=== PATIENT | female | born 1985 | race American Indian/Alaskan Native ===

== ENCOUNTER 2019-03-07 07:46 | Emergency (ER) | payer MEDICAID ==
[2019-03-07 07:51] VITALS: BP 127/87
--- NOTE | 2019-03-07 08:00 | Emergency Department Report ---
ED ENT HPI - General Chief complaint: Dental/Oral Stated complaint: TOOTH PAIN Time Seen by Provider: 03/07/19 07:52 Source: patient Mode of arrival: Ambulatory Limitations: No Limitations - History of Present Illness Initial comments: Patient is a 33-year-old female presents emergency room with complaints of right upper dental pain that began 2 weeks ago. She states that she began noticing swelling to the gum on that side a couple days ago. she denies any fever, chills, nausea, vomiting, any other symptoms. She is tolerating by mouth intake. Denies any past medical history or allergies medications. states she has not seen a dentist in a few years. States her last dental cycle was February 14. - Related Data Previous Rx's Medication Instructions Recorded Last Taken Type Ibuprofen [Motrin 600 MG tab] 600 mg PO Q8H PRN #14 tablet 03/07/19 Unknown Rx Penicillin Vk [Veetids TAB] 500 mg PO QID 7 Days #56 tablet 03/07/19 Unknown Rx Allergies Allergy/AdvReac Type Severity Reaction Status Date / Time No Known Allergies Allergy Unverified 03/07/19 07:47 ED Dental HPI - General Chief complaint: Dental/Oral Stated complaint: TOOTH PAIN Time Seen by Provider: 03/07/19 07:52 Source: patient Mode of arrival: Ambulatory Limitations: No Limitations - Related Data Previous Rx's Medication Instructions Recorded Last Taken Type Ibuprofen [Motrin 600 MG tab] 600 mg PO Q8H PRN #14 tablet 03/07/19 Unknown Rx Penicillin Vk [Veetids TAB] 500 mg PO QID 7 Days #56 tablet 03/07/19 Unknown Rx Allergies Allergy/AdvReac Type Severity Reaction Status Date / Time No Known Allergies Allergy Unverified 03/07/19 07:47 ED Review of Systems ROS: Stated complaint: TOOTH PAIN Other details as noted in HPI Comment: All other systems reviewed and negative ED Past Medical Hx - Past Medical History Previous Medical History?: No - Surgical History Past Surgical History?: Yes Additional Surgical History: D & C in 2006 - Social History Smoking Status: Former Smoker Substance Use Type: Alcohol, Marijuana, Other - Medications Home Medications: Home Medications Medication Instructions Recorded Confirmed Last Taken Type Ibuprofen [Motrin 600 MG tab] 600 mg PO Q8H PRN #14 tablet 03/07/19 Unknown Rx Penicillin Vk [Veetids TAB] 500 mg PO QID 7 Days #56 tablet 03/07/19 Unknown Rx ED Physical Exam - General Limitations: No Limitations General appearance: alert, in no apparent distress - Head Head exam: Present: atraumatic, normocephalic - Eye Eye exam: Present: normal appearance - ENT ENT exam: Present: normal orophraynx, mucous membranes moist, other (cracked tooth present at tooth #2, area of edema present on the right upper gumline, no obvious fluctuance, uvula is midline, no uvular edema) - Respiratory Respiratory exam: Present: normal lung sounds bilaterally. Absent: respiratory distress, wheezes, rales, rhonchi, stridor, chest wall tenderness, accessory muscle use, decreased breath sounds, prolonged expiratory - Cardiovascular Cardiovascular Exam: Present: regular rate, normal rhythm, normal heart sounds. Absent: systolic murmur, diastolic murmur, rubs, gallop - Neurological Exam Neurological exam: Present: alert, oriented X3 - Psychiatric Psychiatric exam: Present: normal affect, normal mood - Skin Skin exam: Present: warm, dry, intact ED Course Vital Signs 03/07/19 07:48 Temperature 98.7 F Pulse Rate 76 Respiratory 18 Rate Blood Pressure 127/87 O2 Sat by Pulse 97 Oximetry ED Medical Decision Making - Medical Decision Making Patient is a 33-year-old female presents emergency room with complaints of right upper dental pain that began 2 weeks ago. She states that she began noticing swelling to the gum on that side a couple days ago. she denies any fever, chills, nausea, vomiting, any other symptoms. She is tolerating by mouth intake. Denies any past medical history or allergies medications. states she has not seen a dentist in a few years. States her last dental cycle was February 14. vitals are normal. on exam: cracked tooth present at tooth #2, area of edema present on the right upper gumline, no obvious fluctuance, uvula is midline, no uvular edema. examination consistent with early dental abscess. pt given prescription for penicillin vk and ibuprofen. advised pt to Please take medication as prescribed. please follow-up with a dentist in the next 2-3 days. It is very important that you follow up with a dentist for a permanent solution. Return to the emergency room for any new or worsening symptoms. Critical care attestation.: If time is entered above; I have spent that time in minutes in the direct care of this critically ill patient, excluding procedure time. ED Disposition Clinical Impression: Dental abscess Disposition: - TO HOME OR SELFCARE Is pt being admited?: No Does the pt Need Aspirin: No Condition: Stable Instructions: Dental Abscess (ED) Additional Instructions: Please take medication as prescribed. please follow-up with a dentist in the next 2-3 days. It is very important that you follow up with a dentist for a permanent solution. Return to the emergency room for any new or worsening symptoms. Prescriptions: Ibuprofen [Motrin 600 MG tab] 600 mg PO Q8H PRN #14 tablet PRN Reason: Pain Penicillin Vk [Veetids TAB] 500 mg PO QID 7 Days #56 tablet Referrals: [facility] [Outside] - 2-3 Days Time of Disposition: 07:58 Print Language: WELSH
== END 2019-03-07 08:05 | disposition home or self-care (01) ==
LOC: ED 07:46
DX: K04.7 Periapical abscess without sinus (principal); F12.10 Cannabis abuse, uncomplicated; Z98.890 Other specified postprocedural states; Z87.891 Personal history of nicotine dependence; Z79.899 Other long term (current) drug therapy

== ENCOUNTER 2019-06-16 14:16 | Emergency (ER) | payer MEDICAID ==
[2019-06-16 14:28] VITALS: BP 110/72
[2019-06-16] MEDS ORDERED: FAMOTIDINE 20 MG TAB PO ONE (16:26)
[2019-06-16] MEDS ORDERED: ACETAMINOPHEN 500 MG TAB PO ONE (16:26)
--- NOTE | 2019-06-16 16:26 | Emergency Department Report ---
Chief Complaint: Abdominal Pain Stated Complaint: POSS STD/CP/ABD PAIN Time Seen by Provider: 06/16/19 16:25 - HPI History of Present Illness: 33 y/o fem p/w 1) cp 2) abd pain 3? sti states no pmd no pe dvt risk factors + cough exam benign low risk for mace assuming - troponin labs ekg ua xr chest Vital Signs 06/16/19 14:26 Temperature 97.7 F Pulse Rate 81 Respiratory 16 Rate Blood Pressure 110/72 O2 Sat by Pulse 97 Oximetry - Exam Vital Signs: Vital Signs 06/16/19 14:26 Temperature 97.7 F Pulse Rate 81 Respiratory 16 Rate Blood Pressure 110/72 O2 Sat by Pulse 97 Oximetry MSE screening note: Focused history and physical exam performed. Due to findings the following was ordered: ED Medical Decision Making - Lab Data Result diagrams: 06/16/19 16:34 06/16/19 16:34 ED Disposition for MSE Condition: Stable Instructions: Abdominal Pain (ED)
[2019-06-16 16:44] LABS: Hematocrit 39.3 % (30.3-42.9); Hemoglobin 13.1 gm/dl (10.1-14.3); Mean Corpuscular HGB Conc 33 % (30-34); Mean Corpuscular Volume 89 fl (79-97); Platelet Count 351 K/mm3 (140-440); Red Cell Distribution Width 13.6 % (13.2-15.2)
[2019-06-16 16:55] LABS: INR 0.94 (0.87-1.13)
[2019-06-16 17:00] LABS: Alanine Aminotransferase 14 units/L (7-56); Albumin 4.3 g/dL (3.9-5); BUN/Creatinine Ratio 19; Blood Urea Nitrogen 15 mg/dL (7-17); Calcium 9.5 mg/dL (8.4-10.2); Hemolysis Index 6
--- NOTE | 2019-06-16 18:08 | XRay Report ---
CHEST 2 VIEWS INDICATION / CLINICAL INFORMATION: cp. COMPARISON: None available. FINDINGS: SUPPORT DEVICES: None. HEART / MEDIASTINUM: No significant abnormality. LUNGS / PLEURA: No significant pulmonary or pleural abnormality. No pneumothorax. ADDITIONAL FINDINGS: No significant additional findings. IMPRESSION: 1. No acute findings. Signer Name: Nishant Brown MD Signed: 06/16/2019 6:04 PM Workstation Name: [id number]
== END 2019-06-16 21:00 | disposition left against medical advice (07) ==
LOC: ED 14:16
DX: R05 Cough (principal); R10.9 Unspecified abdominal pain; R07.89 Other chest pain; Z20.2 Contact with and (suspected) exposure to infections with a predominantly sexual mode of transmission
CPT/HCPCS: 36415; 71046; 80053; 82550; 83735; 84484; 84702; 85027; 85610

== ENCOUNTER 2019-10-19 07:44 | Emergency (ER) | payer SELFPAY ==
--- NOTE | 2019-10-19 08:03 | Emergency Department Report ---
ED General Adult HPI - General Chief complaint: Sore Throat Stated complaint: CHEST PAIN/BODY/SORE THROAT Time Seen by Provider: 10/19/19 07:55 Source: patient Mode of arrival: Ambulatory Limitations: No Limitations - History of Present Illness Initial comments: Patient is a 33-year-old female who presents emergency room with complaints of generalized body aches that began a couple days ago. She states that she also has cough, sore throat, ear discomfort, chest discomfort after frequent coughing. She denies any fever, nausea, vomiting, diarrhea, shortness of breath. She denies any sick contacts or recent travel. She denies any past medical history. She denies any allergies to medications. She states she is a non-smoker. - Related Data Previous Rx's Medication Instructions Recorded Last Taken Type Ibuprofen [Motrin 600 MG tab] 600 mg PO Q8H PRN #14 tablet 03/07/19 Unknown Rx Penicillin Vk [Veetids TAB] 500 mg PO QID 7 Days #56 tablet 03/07/19 Unknown Rx Allergies Allergy/AdvReac Type Severity Reaction Status Date / Time No Known Allergies Allergy Unverified 03/07/19 07:47 ED Review of Systems ROS: Stated complaint: CHEST PAIN/BODY/SORE THROAT Other details as noted in HPI Comment: All other systems reviewed and negative ED Past Medical Hx - Past Medical History Previous Medical History?: No - Surgical History Past Surgical History?: Yes Additional Surgical History: D & C in 2006 - Social History Smoking Status: Never Smoker - Medications Home Medications: Home Medications Medication Instructions Recorded Confirmed Last Taken Type Ibuprofen [Motrin 600 MG tab] 600 mg PO Q8H PRN #14 tablet 03/07/19 Unknown Rx Penicillin Vk [Veetids TAB] 500 mg PO QID 7 Days #56 tablet 03/07/19 Unknown Rx ED Physical Exam - General Limitations: No Limitations General appearance: alert, in no apparent distress - Head Head exam: Present: atraumatic, normocephalic - Eye Eye exam: Present: normal appearance - ENT ENT exam: Present: normal orophraynx, mucous membranes moist, TM's normal bilaterally, normal external ear exam, other (normal nasal turbinates, no tonsillar hypertrophy or exudates, uvula is midline, no uvular edema or deviation, no trismus, no tongue elevation, no muffled voice, tolerating secretions) - Respiratory Respiratory exam: Present: normal lung sounds bilaterally. Absent: respiratory distress, wheezes, rales, rhonchi, stridor, chest wall tenderness, accessory muscle use, decreased breath sounds, prolonged expiratory - Cardiovascular Cardiovascular Exam: Present: regular rate, normal rhythm, normal heart sounds. Absent: systolic murmur, diastolic murmur, rubs, gallop - Neurological Exam Neurological exam: Present: alert, oriented X3 - Psychiatric Psychiatric exam: Present: normal affect, normal mood - Skin Skin exam: Present: warm, dry, intact ED Course Vital Signs 10/19/19 10/19/19 07:48 08:07 Temperature 99.1 F 98.6 F Pulse Rate 87 80 Respiratory 16 16 Rate Blood Pressure 112/80 Blood Pressure 118/71 [Left] O2 Sat by Pulse 95 98 Oximetry ED Medical Decision Making - Radiology Data Radiology results: report reviewed CHEST 2 VIEWS INDICATION: cough. COMPARISON: 06/16/2019 FINDINGS: Support devices: None. Heart: Within normal limits. Lungs/Pleura: No acute air space or interstitial disease. No significant pleural effusion. IMPRESSION: No acute findings. Signer Name: Edy Stanford MD Signed: 10/19/2019 8:24 AM Workstation Name: [id number] Transcribed By: ES Dictated By: Edy Stanford MD Electronically Authenticated By: Edy Stanford MD Signed Date/Time: 10/19/19823 DD/ 2 TD/TT: - Medical Decision Making Patient is a 33-year-old female who presents emergency room with complaints of generalized body aches that began a couple days ago. She states that she also has cough, sore throat, ear discomfort, chest discomfort after frequent coughing. She denies any fever, nausea, vomiting, diarrhea, shortness of breath. She denies any sick contacts or recent travel. She denies any past medical history. She denies any allergies to medications. She states she is a non-smoker. Vitals are normal. No abnormality on physical examination as documented in chart. PERC criteria negative for PE. CXR: No acute findings. Discussed supportive care and symptomatic treatment with patient. Discussed strict return precautions with patient. Advised patient Please increase your fluid intake over the next several days. May take Tylenol as needed for body aches. May use [id number] medication for symptomatic relief such as TheraFlu or Mucinex. Get plenty of rest. May use a humidifier. Follow-up with your primary care doctor in the next 2 to 3 days for reexamination. Return to the emergency room for any new or worsening symptoms including but not limited to difficulty breathing, shortness of breath, high fevers not controlled by Tylenol, severe chest pain, unable to tolerate by mouth intake, etc. Please self quarantine for 2 weeks. Please do not go out in public. If you are around others at home please wear a mask. If you need to cough or sneeze please do so in a napkin and throw it away and immediately wash your hands. Wash your hands frequently. Wipe everything down. Medical screening performed and there is no threat to life or limb at this time - Differential Diagnosis PNA, URI, pharyngitis, peritonsillar abscess, COVID-19, viral syndrome Critical care attestation.: If time is entered above; I have spent that time in minutes in the direct care of this critically ill patient, excluding procedure time. ED Disposition Clinical Impression: Cough, Generalized body aches, Sore throat Disposition: MED SCREENING EXAM-LEFT Is pt being admited?: No Does the pt Need Aspirin: No Condition: Stable Instructions: Viral Syndrome (ED) Additional Instructions: Please increase your fluid intake over the next several days. May take Tylenol as needed for body aches. May use [id number] medication for symptomatic relief such as TheraFlu or Mucinex. Get plenty of rest. May use a humidifier. Follow-up with your primary care doctor in the next 2 to 3 days for reexamination. Return to the emergency room for any new or worsening symptoms including but not limited to difficulty breathing, shortness of breath, high fevers not controlled by Tylenol, severe chest pain, unable to tolerate by mouth intake, etc. Please self quarantine for 2 weeks. Please do not go out in public. If you are around others at home please wear a mask. If you need to cough or sneeze please do so in a napkin and throw it away and immediately wash your hands. Wash your hands frequently. Wipe everything down. Referrals: WALTER LLANES MD [Primary Care Provider] - 3-5 Days NANCY SALINAS MD [Staff Physician] - 3-5 Days [facility] [Provider Group] - 3-5 Days [facility] [Outside] - 3-5 Days Forms: Work/School Release Form(ED) Time of Disposition: 08:35 Print Language: PANAMANIAN
[2019-10-19 08:12] VITALS: BP 118/71
== END 2019-10-19 08:59 | disposition left against medical advice (07) ==
LOC: ED 07:44
DX: R05 Cough (principal); J02.9 Acute pharyngitis, unspecified
CPT/HCPCS: 71046; 99282